=== PATIENT | male | born 1980 | race Two or more races ===

== ENCOUNTER 2022-02-17 20:56 | Emergency (ER) | payer OTHER ==
[~2022-02-17] VITALS: Ht 167.6 cm; Wt 70.3 kg
--- NOTE | 2022-02-17 21:16 | NUR ---
TO ER BED 13. [id number] ACCOMPANIED BY [employer] C/O OTB. DENIES ANY CHEST PAIN. NOT IN RESPIRATORY DISTRESS. CONNECTED TO MONITOR. AWAITING MD HANNAH
--- NOTE | 2022-02-17 21:27 | NUR ---
Patient discharged to home in stable condition. Written and verbal after care instructions given. Patient verbalizes understanding of instruction. pT ambulatory with a steady gait in police custody
[2022-02-17 21:31] VITALS: BP 145/99
== END 2022-02-17 21:55 ==
LOC: ER 21:01
DX: Z02.89 Encounter for other administrative examinations (principal); Z77.098 Contact with and (suspected) exposure to other hazardous, chiefly nonmedicinal, chemicals; Z88.6 Allergy status to analgesic agent

== ENCOUNTER 2022-05-23 08:48 | Emergency (ER) | payer OTHER ==
[~2022-05-23] VITALS: Ht 170.2 cm; Wt 79.4 kg
--- NOTE | 2022-05-23 08:55 | NUR ---
BIB [employer] UNIT#15A21 W/ C/O ABDOMINAL PAIN X2DAYS W/ NAUSEA/VOMITING. PT A/O X4, AMBULATORY. TO ER BED 14.
--- NOTE | 2022-05-23 09:20 | NUR ---
PT TAKEN TO RADIOLOGY VIA [facility]
[2022-05-23] MEDS ORDERED: MAG HYDROX/AL HYDROX/SIMETH 30 ML UDC ONE (09:21)
[2022-05-23] MEDS ORDERED: PANTOPRAZOLE 40 MG VIAL ONE (09:21)
[2022-05-23] MEDS ORDERED: LIDOCAINE VISCOUS 2% UD 15 ML UDC ONE (09:22)
[2022-05-23] MEDS ORDERED: FAMOTIDINE/PF INJ 20 MG/2 ML VIAL IV ONE ×2 (09:22→09:30)
[2022-05-23 09:30] LABS: BILIRUBIN,URINE NEGATIVE (NEGATIVE); COLOR,URINE YELLOW (YELLOW); LEUKOCYTE ESTERASE ,URINE MODERATE (NEGATIVE); NITRITE, URINE NEGATIVE (NEGATIVE); PROTEIN,URINE NEGATIVE (NEGATIVE); UGLUCOSE NEGATIVE (NEGATIVE); UROBILINOGEN,URINE 0.2 EU/dL (0.2)
[2022-05-23] MEDS ORDERED: MAG HYDROX/AL HYDROX/SIMETH 30 ML UDC PO ONE (09:30)
[2022-05-23] MEDS ORDERED: PANTOPRAZOLE 40 MG VIAL IV ONE (09:30)
[2022-05-23] MEDS ORDERED: LIDOCAINE VISCOUS 2% UD 15 ML UDC MM ONE (09:30)
--- NOTE | 2022-05-23 09:35 | NUR ---
PT RETURNED FROM RADIOLOGY
--- NOTE | 2022-05-23 09:43 | NUR ---
IV LINE ESTABLISHED ON LAC #18, BLOOD DRAWN AND SENT TO LAB. URINE SAMPLE COLLECTED AND SENT TO LAB.
[2022-05-23 09:44] LABS: BASOPHILS % (AUTO) 0.4 % (0.0-2.0); EOSINOPHILS % (AUTO) 2.6 % (0.0-6.0); HEMATOCRIT 42 % (39-51); HEMOGLOBIN 14.1 g/dL (13.5-17.5); LYMPHOCYTES # (AUTO) 1.1 K/uL (0.8-4.8); LYMPHOCYTES % (AUTO) 11.1 % (20.0-44.0); MEAN CORPUSCULAR HGB CONC 34 g/dl (31.0-36.0); MEAN CORPUSCULAR VOLUME 97 fL (80-96); MONOCYTES # (AUTO) 0.5 K/uL (0.1-1.30); NEUTROPHILS % (AUTO) 80.9 % (43.0-81.0); PLATELET COUNT (AUTO) 267 K/uL (150-450); RED BLOOD CELL COUNT(AUTO) 4.33 MIL/uL (4.5-6.0); WHITE BLOOD COUNT (AUTO) 9.9 K/uL (4.3-11.0)
[2022-05-23 09:52] LABS: RBC,URINE 0-2 /HPF (0-2)
[2022-05-23 09:53] LABS: BACTERIA,URINE Few /HPF (None Seen); SQUAMOUS EPITHELIAL CELL,UR Rare /HPF (None Seen)
[2022-05-23 09:58] LABS: ALANINE AMINOTRANSFERASE 276 U/L (12-78); ALBUMIN 3.8 g/dL (3.4-5.0); ALKALINE PHOSPHATASE 81 U/L (46-116); ASPARTATE AMINOTRANSFERASE 604 U/L (15-37); BILIRUBIN,DIRECT 0.1 mg/dL (0.0-0.2); BILIRUBIN,TOTAL 0.3 mg/dL (0.2-1.0); CALCIUM, SERUM 8.6 mg/dL (8.5-10.1); CARBON DIOXIDE 33 mmol/L (21-32); CHLORIDE 105 mmol/L (98-107); CREATININE 0.9 mg/dL (0.6-1.3); GLUCOSE 81 mg/dL (74-106); POTASSIUM 4.3 mmol/L (3.5-5.1); SODIUM SERUM 141 mmol/L (136-145); TOTAL PROTEIN, SERUM 7.3 g/dL (6.4-8.2); UREA NITROGEN, BLOOD 10 mg/dL (7-18)
[2022-05-23] MEDS ORDERED: AMOX-430 PO (10:48)
[2022-05-23] MEDS ORDERED: FAMO-131 PO (10:48)
[2022-05-23 10:56] VITALS: BP 132/84
--- NOTE | 2022-05-23 10:56 | NUR ---
Patient discharged to law enforcement for incarceration, in stable condition. Written and verbal after care instructions given. Prescriptions provided.
--- NOTE | 2022-05-23 10:56 | NUR ---
IV removed. Catheter intact and site benign. Pressure and 4x4 applied to site. No bleeding noted.
[2022-05-23 13:33] LABS: LIPASE 113 U/L (73-393)
== END 2022-05-23 10:58 ==
LOC: ER 08:50
DX: R10.84 Generalized abdominal pain (principal); R11.2 Nausea with vomiting, unspecified; Z88.6 Allergy status to analgesic agent; Z79.899 Other long term (current) drug therapy
CPT/HCPCS: 99284; 96374; 96375; 74176; 85025; 80048; 87086; 83690; 80076; 81001; 36415; 84484; 80320; 80307; J3490; C9113; G0480